=== PATIENT | male | born 2000 | race African-American/Black ===

== ENCOUNTER 2019-08-08 15:32 | Emergency (ER) | payer OTHER ==
[~2019-08-08] VITALS: Ht 185.4 cm; Wt 77.1 kg
[2019-08-08 15:47] VITALS: BP_SYST 111
--- NOTE | 2019-08-08 15:52 | NUR ---
Patient triaged and placed in waiting room. VSS and patient appears in no acute distress at this time. Accompanied by self, awaiting available bed, and MD notified of need for MSE.
--- NOTE | 2019-08-08 17:35 | NUR ---
Patient to ER bed 5 to gown for evaluation. Side rails up.
--- NOTE | 2019-08-08 17:50 | NUR ---
Patient presented to ER with rbump to left thigh. Patient A&Ox4, pain 0/10. denies N/V/D, skin pink and warm, cap refill <3, pedal pulses present. Patient states bump has been present x1 month with intermittent pain, today no pain.
--- NOTE | 2019-08-08 17:52 | NUR ---
ER Dr.Diaz Collins at bedside examining patient.
[2019-08-08 18:15] VITALS: BP_SYST 112
--- NOTE | 2019-08-08 18:15 | NUR ---
Patient given written and verbal discharge instructions and verbalizes understanding. ER MD discussed with patient the results and treatment provided. Patient in stable condition. ID arm band removed. Rx of Bactrim given. Patient educated on pain management and to follow up with PMD. Pain Scale0/10 . Opportunity for questions provided and answered.
== END 2019-08-08 18:15 | disposition home or self-care (01) ==
LOC: SED 15:32
DX: L02.215 Cutaneous abscess of perineum (principal)
CPT/HCPCS: 99283